=== PATIENT | female | born 1985 | race Caucasian/White ===

== ENCOUNTER 2024-03-28 11:12 | Outpatient (CLI) | payer BC | END 2024-03-28 11:13 | disposition home or self-care (01) | LOC: CSHCT 11:12 | PROVIDERS: ATTEND Student in an Organized Health Care Education/Training Program | DX: D16.9 Benign neoplasm of bone and articular cartilage, unspecified (principal); M89.9 Disorder of bone, unspecified | CPT/HCPCS: 71250 ==

== ENCOUNTER 2024-09-20 12:41 | Outpatient (CLI) | payer BC | END 2024-09-20 12:42 | disposition home or self-care (01) | LOC: CSHCT 12:41 | PROVIDERS: ATTEND Student in an Organized Health Care Education/Training Program | DX: D16.9 Benign neoplasm of bone and articular cartilage, unspecified (principal) | CPT/HCPCS: 71250 ==